=== PATIENT | male | born 2000 | race African-American/Black ===

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

== ENCOUNTER 2023-10-05 23:57 | Emergency (ER) | payer MEDICAID ==
[~2023-10-05] VITALS: Ht 175.3 cm; Wt 79.0 kg
[2023-10-06 00:15] VITALS: TEMP 98.6; O2SAT 100
[2023-10-06 00:44] VITALS: BP 137/83; PULSE 64; RESP 17
[2023-10-06] MEDS: TETANUS, DIPHTHERIA, PERTUSSIS VAC/PF 0.5ML (>10YR OLD) IM ONE (00:52)
== END 2023-10-06 02:25 | disposition home or self-care (01) ==
LOC: ER 23:57
DX: R51.9 Headache, unspecified (principal); Y04.0XXA Assault by unarmed brawl or fight, initial encounter; Y93.89 Activity, other specified; Y92.89 Other specified places as the place of occurrence of the external cause; Y99.8 Other external cause status
CPT/HCPCS: 99285; 70450; 70486; 72125; 90715; 90471; Z7610 ×2